=== PATIENT | female | born 1975 | race Caucasian/White ===

== ENCOUNTER → 2021-01-28 02:31 | Outpatient (CLI) | payer OTHER, SELFPAY ==
[2021-01-28 16:16] LABS: SARS-CoV-2 RNA PCR Negative
== END ==
PROVIDERS: Visit Provider Obstetrics & Gynecology
DX: Z01.812 Encounter for preprocedural laboratory examination (principal); Z20.822 Contact with and (suspected) exposure to COVID-19
CPT/HCPCS: C9803; U0003; U0005

== ENCOUNTER 2021-01-30 10:39 | Outpatient (CLI) | payer OTHER, SELFPAY ==
--- NOTE | 2021-01-30 10:45 | ECG_ITS ---
Measurements Intervals [place] Rate: 71 P: 32 [place]: 154 QRS: 12 QRSD: 102 T: 29 QT: 395 QTc: 431 Interpretive Statements SINUS RHYTHM INCOMPLETE RIGHT BUNDLE BRANCH BLOCK LOW QRS VOLTAGE IN PRECORDIAL LEADS BORDERLINE R WAVE PROGRESSION, ANTERIOR LEADS BORDERLINE ECG Electronically Signed On 01-30-2021 11:32:25 CDT by Az Conner D.O.
[2021-01-30 11:42] LABS: Basophils Absolute Auto 0.1 K/mm3 (0.0-0.1); Basophils Percent Auto 0.5 % (0.2-1.2); Eosinophils Absolute Auto 0.3 K/mm3 (0-0.3); Eosinophils Percent Auto 2.7 % (0-4.4); Hematocrit 44.5 % (37.0-47.0); Hemoglobin 14.5 g/dL (12.0-15.0); Immature Granulocyte Absolute 0.03 K/mm3 (0.00-0.031); Immature Granulocyte Percent A 0.3 % (0-0.5); Lymphocytes Absolute Auto 2.57 K/mm3 (0.9-3.2); Lymphocytes Percent Auto 23.7 % (18.3-44.2); Mean Corpuscular HGB Conc 32.6 g/dl (32-36); Mean Corpuscular Hemoglobin 28.4 pg (26-34); Mean Corpuscular Volume 87.1 fl (80-100); Mean Platelet Volume 10.2 fl (7.4-10.4); Monocytes Absolute Auto 0.7 K/mm3 (0.1-0.6); Neutrophils Absolute Auto 7.3 K/mm3 (1.3-6.7); Neutrophils Percent Auto 66.8 % (45.5-73.1); Platelet Count Result 299 k/mm3 (150-375); Red Blood Count 5.11 M/mm3 (4.2-5.4); Red Cell Distribution Width 13.8 % (11.5-14.5); White Blood Count 10.8 K/mm3 (4.5-10.0)
[2021-01-30 11:48] LABS: Anion Gap 11 mmol/L (8-16); Blood Urea Nitrogen 20 mg/dL (7-17); Calcium 9.9 mg/dL (8.4-10.2); Carbon Dioxide 29 mmol/L (22-30); Chloride 102 mmol/L (98-107); Estimated Glomerular Filt Rate > 60; Glucose 109 mg/dL (65-105); Potassium 3.5 mmol/L (3.4-5.0); Sodium 142 mmol/L (137-145)
== END 2021-01-30 10:40 | disposition home or self-care (01) ==
LOC: ANHSURGERY 10:48
PROVIDERS: Visit Provider Obstetrics & Gynecology
DX: N85.2 Hypertrophy of uterus (principal); I10 Essential (primary) hypertension; Z01.818 Encounter for other preprocedural examination; I45.10 Unspecified right bundle-branch block
CPT/HCPCS: 36415; 80048; 85025; 86850; 86900; 86901; 93005

== ENCOUNTER 2021-01-31 00:27 | Day surgery (SDC) | payer OTHER, MEDICARE, SELFPAY ==
[2021-01-28 11:05] VITALS: BMI 54.6
--- NOTE | 2021-01-29 07:14 | PM.IMHP ---
H&P: HPI History of Present Illness Date/Time: 01/29/21 07:14 [age] admitted for robotic total vaginal hysterectomy and bilateral salpingectomies. She complains of pain discomfort dyspareunia. She has an enlarged uterus and has failed ablation. She opted for hysterectomy as she does have a prolapse risks and benefits were reviewed including but not exclusive of , aspiration pneumonia, bleeding, transfusion, perforation injury to bowel, bladder, ureters, or other internal organs with need for open laparotomy. She received the ACOG handout on hysterectomy as well as advancing handout. She had all questions answered. She asked to proceed Chief Complaint: pelvic pain/dyspareunia / enlarged uterus / bleeding Review of Systems Review of Systems: All systems reviewed & are unremarkable except as noted in HPI and below [facility] Social History Social History Years smoked: 30 Smoking status: Former smoker Tobacco type: cigarettes Substance use: current Substance use type: marijuana Other substance usage details: DAILY MARIJUANA USE Last use: 2014 Spiritual care concerns: No Meds Home Medications and Allergies Home Medications Medication Instructions Recorded Confirmed Type albuterol sulfate 2 puff INHALATION PRN PRN 01/28/21 01/28/21 History cholecalciferol (vitamin D3) 25 mcg PO DAILY 01/28/21 01/28/21 History [Vitamin D3] cyclobenzaprine 10 mg PO HS 01/28/21 01/28/21 History erenumab-aooe [Aimovig 140 mg SUBCUT MONTHLY 01/28/21 01/28/21 History Autoinjector] hydrochlorothiazide 12.5 mg PO DAILY 01/28/21 01/28/21 History meloxicam 15 mg PO DAILY 01/28/21 01/28/21 History metoprolol succinate 25 mg PO HS 01/28/21 01/28/21 History phentermine 15 mg PO DAILY 01/28/21 01/28/21 History Allergies Allergy/AdvReac Type Severity Reaction Status Date / Time levofloxacin Allergy Severe ORGAN Verified 01/28/21 11:23 FAILURE aspartame Allergy Migraine Verified 01/28/21 11:23 latex Allergy Itching Verified 01/28/21 11:23 CURRANT CROWELL Allergy Itching Uncoded 01/28/21 11:23 Exam Const: General: no acute distress Eyes: General: appearance normal, both eyes and all related structures Neck: Neck: supple and no JVD Thyroid: thyroid normal Resp: Effort & Inspection: normal respiratory effort Auscultation: clear to auscultation bilaterally Cardio: Rate: regular rate Rhythm: regular rhythm GI: Inspection: non-distended GI Palp: Yes Soft to palpation, No Tenderness to palpation present (GI) and No Guarding due to palpation present (GI) Auscultation: normal bowel sounds : External Female Exam: normal external appearance Speculum Exam - Vagina: normal appearance of the vagina Speculum Exam - Cervix: Cervical os closed Bimanual exam- vagina & uterus: enlarged and Uterine tenderness ( second-degree prolapse is present) Bimanual Exam- Adnexa, other: normal adnexae ( difficult secondary to pannus) and cul-de-sac tenderness Skin: General skin exam: no rashes or lesions noted Extrem: General: normal to inspection and no edema Psych: Mental Status: mental status grossly normal Affect: normal affect Assessment and Plan Additional Plan impression: Enlarged uterus, pelvic pain, dyspareunia, failed ablation Plan: Robotic total vaginal hysterectomy and bilateral salpingectomies
[2021-01-31] VITALS (11 sets, daily range): BP systolic 128–158; BP diastolic 61–89; PULSE 51–79; RESP 12–20; TEMP 36.2–36.6; O2SAT 90–100
--- NOTE | 2021-01-31 05:42 | WPDHPUPDATE1 ---
History and Physical Update Update Date/Time: 01/31/21 05:42 History and Physical has been reviewed, including an updated exam of the patient. There are NO changes in the patient's condition. Risks, benefits, and alternatives have been discussed and questions answered. Patient agrees to proceed with procedure.
[2021-01-31] MEDS: ACETAMINOPHEN 500 MG TABLET 1000 MG PO (06:35)
[2021-01-31] MEDS: LACTATED RINGERS 1,000 ML 30 ML IV CONT ×2 (06:44→09:24)
[2021-01-31] MEDS: KETOROLAC 15 MG/ML VIAL (*BKC) IV PUSH (06:46)
--- NOTE | 2021-01-31 06:50 | WPDANESEPPF ---
Anes - Initial Pre Proc Eval Procedure: Operation Date: 01/31/21 07:30 Proposed Procedures p Robotic Total Vaginal Hysterectomy, with Bilateral Salpingectomy - Kamaljit Joseph MD Date/Time: 01/31/21 06:50 Surgeon: Kamaljit Joseph MD Pre Op Diagnosis: enlarged uterus,pelvic pain,dysmenorrhea,failed ab Patient Data Age: 45 Gender: F Height: 1.63 m Weight: 146.3 kg Last Vital Signs Temp 36.2 C L 01/31/21 06:13 Pulse 69 01/31/21 06:13 Resp 16 01/31/21 06:13 BP 143/79 H 01/31/21 06:13 Pulse Ox 100 01/31/21 06:13 Allergies Allergy/AdvReac Type Severity Reaction Status Date / Time levofloxacin Allergy Severe ORGAN Verified 01/31/21 06:24 FAILURE aspartame Allergy Intermediate Migraine Verified 01/31/21 06:24 latex Allergy Intermediate Itching Verified 01/31/21 06:24 CURRANT CROWELL Allergy Intermediate Itching Uncoded 01/31/21 06:24 Home Medications Medication Instructions Recorded Confirmed Type albuterol sulfate 2 puff INHALATION PRN PRN 01/28/21 01/31/21 History cholecalciferol (vitamin D3) 25 mcg PO DAILY 01/28/21 01/31/21 History [Vitamin D3] cyclobenzaprine 10 mg PO HS 01/28/21 01/31/21 History erenumab-aooe [Aimovig 140 mg SUBCUT MONTHLY 01/28/21 01/31/21 History Autoinjector] hydrochlorothiazide 12.5 mg PO DAILY 01/28/21 01/31/21 History meloxicam 15 mg PO DAILY 01/28/21 01/31/21 History metoprolol succinate 25 mg PO HS 01/28/21 01/31/21 History phentermine 15 mg PO DAILY 01/28/21 01/31/21 History hydrocodone-acetaminophen 1 tablet PO Q4H PRN #30 tablet 01/31/21 Rx Patient hx anesthesia problems: none Family hx anesthesia problems: none PMFSH Past Medical History Medical History (Updated 01/31/21 @ 06:51 by Kamaljit Johnston MD) Asthma Fibromyalgia Morbid obesity Surgical History Surgical History (Updated 01/31/21 @ 06:51 by Kamaljit Johnston MD) History of cholecystectomy History of endometrial ablation Social History Social History Years smoked: 30 Smoking status: Former smoker Tobacco type: cigarettes Substance use: current Substance use type: marijuana Other substance usage details: DAILY MARIJUANA USE Last use: 2014 Living arrangements: with family Spiritual care concerns: No Anes - Eval Final PreProcedure Day of Procedure 01/31/21 06:50 Patient weight: super morbidly obese Heart: regular rate and rhythm Lungs: clear to auscultation Airway: Mallampati scale class II Neurological: alert and oriented Last oral intake: >/= 8 hours ASA classification: IV Emergent: no Anesthetic plan: proceed Anesthesia type and monitoring: general ETT and standard monitoring Informed Consent: The patient's anesthetic plan and its attendant risks and benefits were discussed with the patient/family/POA. Questions were solicited and answers provided to the satisfaction of the patient/family/POA.
[2021-01-31] MEDS: ceFAZolin 3 GM/D5W 100 ML 100 ML IVPB (07:32)
--- NOTE | 2021-01-31 09:08 | W.PM.PROC2 ---
Procedure Note - Detailed Date of Procedure 01/31/21 Pre-op Diagnosis enlarged uterus,pelvic pain,dysmenorrhea,failed ab Post-op Diagnosis other (Extensive adhesions) Procedure Performed robotic total vaginal hysterectomy / bilateral salpingectomies / extensive lysis of adhesions Surgeon Kamaljit Joseph MD Anesthesia general Indications this is a 45-year-old female with a failed ablation who had severe pelvic pain and enlarged uterus. Findings A markedly enlarged uterus. Tubes status post tubal ligation. Multiple adhesions from omentum to uterus ovaries and tubes. Description of Procedure Patient was prepped and draped in the normal sterile fashion placed in the dorsal lithotomy position. Under excellent general endotracheal anesthesia weighted speculum placed in posterior fornix vagina. Anterior lip of the cervix grasped with a single-tooth tenaculum the uterus sounded to 10cm. Serial dilatation with fragmented dilators performed followed by passage of the 8. SKYE and the 3.5 cold cup. A 16 [place] catheter was placed in the bladder and drained clear urine. The weighted speculum and the single-tooth removed. Gloves were changed Supraumbilical incision made in the Veress needle passed in the abdomen. The abdomen was filled with CO2 gas [id number]. The 8mm trocar advanced in the abdomen. The downside visualized and no injury seen. Gas reattached. The patient placed in Trendelenburg and right and left lateral quadrant incisions were made. A right upper quadrant incision made in the 10mm trocar advanced under direct visualization assuring no injury. There was some difficulty due to the patient's morbid obesity but this was undertaken. The robot was docked. Attention was turned to the console. The left round ligament was grasped, burned, cut. Anteriorly the bladder was markedly adherent to the anterior portion of the uterus and fundus. Layer by layer this was brought down and reflected distally from the uterus and cervix. This was taken to the opposite round ligament which was clamped, burned, cut. The ovary and tube complexes were noted be markedly adherent. Before attempting to approach that posteriorly the colon and omentum was markedly adherent to the posterior surface of the uterus from the fundus on down. Sharp dissection was undertaken going layer by layer until this was cleared. Eventually the tubes could be visualized the left fallopian tube was sharply dissected away from the ovary and removed through the right lower quadrant. This was repeated with the right fallopian tube. The left utero-ovarian ligament was then skeletonized. This was clamped, burned, cut and brought to the level of the previously cut round ligament. In like fashion conserving the right ovary utero-ovarian ligament was clamped, burned, cut and brought to the level of previously cut round ligament. The cardinal and broad ligaments on the left were then Star García dissected by clamping burning cutting and hugging the cervical edge until the uterine vessels could be seen. The uterine vessels were noted to be markedly enlarged tortuous. These were individually clamped, burned, cut. In like fashion the cardinal broad ligaments on the right were serially skeletonized sliding along the edge of the uterus and cervix clamping burning and cutting. Once uterine vessels could be visualized on the right these were also large and tortuous. They were clamped individually cut and burned. Excellent blanching of the uterus was seen and the colpotomy incision was made. The uterus cervix and tubes removed through the vagina. Blood loss estimated about 25cc at that point. Irrigation undertaken to clear. The vaginal cuff was then closed with continuous running 0V lock from lateral edge to lateral edge back to the midline. The pedicles all appeared dry. And [place] term was placed over the raw surface area. Blood loss estimated 25cc. The robot was then undocked. The
--- NOTE | 2021-01-31 09:11 | SUR.OPER ---
EBL=25ML
[2021-01-31] MEDS: fentaNYL CITRATE INJ (*CRX) 100 MCG/2 ML VIAL 25 MCG IV PUSH ×4 (09:37→09:57)
[2021-01-31] MEDS: ONDANSETRON INJ 4 MG/2 ML VIAL IV PUSH (09:39)
[2021-01-31] MEDS: HYDROmorphone HCL INJ (*CRX) 1 MG/ML SYR 0.25 MG IV PUSH ×4 (09:59→10:15)
[2021-01-31] MEDS: DEXTROSE 5%/LACTATED RINGERS 1,000 ML 125 ML IV CONT ×2 (11:20→18:51)
[2021-01-31] MEDS: MORPHINE SULFATE (*CRX) 4 MG/ML INJ IV PUSH (11:22)
--- NOTE | 2021-01-31 11:40 | PC.NURSE ---
This patient, Shirlene Ferrera, was received from PACU on 01/31/21 at 1100. Patient/family oriented to unit policies and routines
[2021-01-31] MEDS: KETOROLAC 30 MG/ML VIAL (*BKC) IV PUSH ×2 (13:38→19:40)
[2021-01-31] MEDS: HYDROcodone/acetaminophen (*CRX) 10-325 MG TABLET 1 TAB PO (19:39)
[2021-02-01] MEDS: IBUPROFEN 600 MG TABLET PO ×2 (01:00→08:37)
[2021-02-01] MEDS: HYDROcodone/acetaminophen (*CRX) 10-325 MG TABLET 1 TAB PO (01:00)
[2021-02-01 03:24] VITALS: BP 121/54; PULSE 69; RESP 18; TEMP 36.6; O2SAT 100
[2021-02-01 03:36] VITALS: RESP 18; O2SAT 100
[2021-02-01 05:05] LABS: Basophils Percent Auto 0.2 % (0.2-1.2); Eosinophils Absolute Auto 0.1 K/mm3 (0-0.3); Eosinophils Percent Auto 0.9 % (0-4.4); Hematocrit 35.7 % (37.0-47.0); Hemoglobin 11.9 g/dL (12.0-15.0); Immature Granulocyte Absolute 0.07 K/mm3 (0.00-0.031); Immature Granulocyte Percent A 0.5 % (0-0.5); Lymphocytes Percent Auto 12.2 % (18.3-44.2); Mean Corpuscular HGB Conc 33.3 g/dl (32-36); Mean Corpuscular Hemoglobin 28.8 pg (26-34); Mean Corpuscular Volume 86.4 fl (80-100); Mean Platelet Volume 10.7 fl (7.4-10.4); Monocytes Absolute Auto 0.7 K/mm3 (0.1-0.6); Monocytes Percent Auto 4.4 % (2.6-8.5); Neutrophils Absolute Auto 12.7 K/mm3 (1.3-6.7); Neutrophils Percent Auto 81.8 % (45.5-73.1); Platelet Count Result 277 k/mm3 (150-375); Red Blood Count 4.13 M/mm3 (4.2-5.4); Red Cell Distribution Width 13.6 % (11.5-14.5); White Blood Count 15.5 K/mm3 (4.5-10.0)
--- NOTE | 2021-02-01 07:45 | PM.DS ---
DS: Admitting Diagnosis Admitting Diagnosis Admitting Diagnosis: Enlarged uterus /pelvic pain / pelvic adhesions /bleeding refractory to medical therapy DS: Summary Hospital Course Hospital Course: the patient was admitted for robotic hysterectomy and bilateral salpingectomy secondary to bleeding and pain. The procedure was unremarkable with blood loss of 25cc. Please see the operative report for full details. Her postop course was unremarkable. Her incisions were clean dry and intact. She remained afebrile. She was up, voiding without difficulty, eating, and ambulating on a in general without complaints. Time Spent with Patient Time attestation: Total time spent providing and/or coordinating discharge services: Exam Const: General: no acute distress Eyes: General: appearance normal, both eyes and all related structures Neck: Neck: supple and no JVD Thyroid: thyroid normal Resp: Effort & Inspection: normal respiratory effort Auscultation: clear to auscultation bilaterally Cardio: Rate: regular rate Rhythm: regular rhythm GI: Inspection: normal to inspection and incision (cdi) : General: Yes bladder normal to palpation External Female Exam: normal external appearance Speculum Exam - Vagina: normal vaginal discharge and No vaginal bleeding Speculum Exam - Cervix: nontender Bimanual exam- vagina & uterus: bladder normal to palpation and No Cervical tenderness present OB/external & speculum: No vaginal bleeding Skin: General skin exam: no rashes or lesions noted Extrem: General: normal to inspection and no edema Psych: Mental Status: mental status grossly normal Affect: normal affect DS: Data Data Completed and Pending Pending studies at discharge: Pending at discharge 01/31/21 08:40 Surgical [PTH] Routine Labs on day of discharge: Labs from last 24 hours 02/01/21 03:03 WBC 15.5 H RBC 4.13 L Hgb 11.9 L Hct 35.7 L MCV 86.4 MCH 28.8 MCHC 33.3 RDW 13.6 Plt Count 277 MPV 10.7 H Immature Gran % (Auto) 0.5 Neut % (Auto) 81.8 H Lymph % (Auto) 12.2 L [place] % (Auto) 4.4 Eos % (Auto) 0.9 Baso % (Auto) 0.2 Lymph # (Auto) 1.90 [place] # (Auto) 0.7 H Eos # (Auto) 0.1 Baso # (Auto) 0.0 Abs Immat Gran (auto) 0.07 H Absolute Neuts (auto) 12.7 H Absolute Nucleated RBC 0.0 Nucleated RBC % 0.0 Discharge Plan Discharge Patient Disposition: Home, Self-Care Stand Alone Forms: General Discharge Instructions Follow-up/Referrals: Kamaljit Joseph MD [Physician] - Discharge Medications: New hydrocodone-acetaminophen 5-325 mg tablet 1 tablet PO Q4H PRN (Reason: pain) Qty: 30 RF: 0 No Action cyclobenzaprine 10 mg tablet 10 mg PO HS RF: 0 meloxicam 15 mg tablet 15 mg PO DAILY RF: 0 phentermine 15 mg capsule 15 mg PO DAILY RF: 0 metoprolol succinate 25 mg tablet extended release 24 hr 25 mg PO HS RF: 0 cholecalciferol (vitamin D3) [Vitamin D3] 25 mcg (1,000 unit) Tablet 25 mcg PO DAILY RF: 0 hydrochlorothiazide 12.5 mg tablet 12.5 mg PO DAILY RF: 0 albuterol sulfate 90 mcg/actuation HFA aerosol inhaler 2 puff INHALATION PRN PRN (Reason: Shortness Of Breath) RF: 0 Aimovig Autoinjector 140 mg/mL auto-injector 140 mg SUBCUT MONTHLY RF: 0
--- NOTE | 2021-02-01 07:48 | PM.GYNPNOP ---
HISTORIC PRESERVATIONIST - A/P Postoperative Procedures: Procedures Operation Date: 01/31/21 07:30 Actual Procedure Side Surgeon p Robotic Total Vaginal Hysterectomy, with Bilateral Salpingectomy Kamaljit Joseph MD Postoperative day: 1 Postoperative status: doing well Postoperative plan: routine post-op care, ambulate, advance diet and discharge Time Spent With Patient Time: Total time spent is greater than 50% in coordination of care (as documented) at patient's floor/unit and/or counseling patient: Time with patient: less than 15 minutes HISTORIC PRESERVATIONIST- PN:Subj Post-Op Subjective Date/time seen: 02/01/21 07:48 Subjective: patient has no complaints Review of Systems Review of Systems: All systems reviewed & are unremarkable except as noted in HPI and below Exam Const: General: no acute distress Eyes: General: appearance normal, both eyes and all related structures Neck: Neck: supple and no JVD Thyroid: thyroid normal Resp: Effort & Inspection: normal respiratory effort Auscultation: clear to auscultation bilaterally Cardio: Rate: regular rate Rhythm: regular rhythm GI: Inspection: non-distended GI Palp: Yes Soft to palpation, No Tenderness to palpation present (GI) and No Guarding due to palpation present (GI) Auscultation: normal bowel sounds : General: Yes bladder normal to palpation External Female Exam: normal external appearance Speculum Exam - Vagina: normal vaginal discharge and No vaginal bleeding Speculum Exam - Cervix: nontender Bimanual exam- vagina & uterus: bladder normal to palpation and No Cervical tenderness present OB/external & speculum: No vaginal bleeding Skin: General skin exam: no rashes or lesions noted Extrem: General: normal to inspection and no edema Psych: Mental Status: mental status grossly normal Affect: normal affect HISTORIC PRESERVATIONIST - PN: Obj Data Vital Signs Vital Signs: Vital Signs - 24 hr 01/31/21 09:24 01/31/21 09:40 01/31/21 09:55 Temperature 97.5 F L Pulse Rate 55 L 56 L 52 L Respiratory Rate 16 17 12 Blood Pressure 153/83 H 158/82 H 155/89 H Pulse Oximetry 100 91 90 01/31/21 10:10 01/31/21 10:25 01/31/21 10:40 Temperature Pulse Rate 55 L 51 L 53 L Respiratory Rate 14 14 14 Blood Pressure 145/83 H 157/84 H 149/84 H Pulse Oximetry 93 97 97 01/31/21 11:15 01/31/21 16:15 01/31/21 19:00 Temperature 97.2 F L 97.9 F 97.6 F Pulse Rate 62 70 68 Respiratory Rate 16 20 18 Blood Pressure 154/86 H 137/64 131/80 Pulse Oximetry 99 99 99 01/31/21 22:36 02/01/21 03:24 02/01/21 03:36 Temperature 98 F 97.9 F Pulse Rate 79 69 Respiratory Rate 18 18 18 Blood Pressure 128/61 121/54 L Pulse Oximetry 100 100 Intake/Output Intake/Output: Intake & Output 01/29/21 01/30/21 01/31/21 02/01/21 23:59 23:59 23:59 23:59 Intake Total 1600 2500 Output Total 340 1600 Balance 1260 900 Meds/Results Medications: Active Medications Generic Name Dose Route Start Last Admin Trade Name Freq PRN Reason Stop Dose Admin Hydrocodone Bitart/Acetaminophen 1 tab 01/31/21 10:47 Hydrocodone/Acetaminophen (*Crx) 5-325 Mg Tablet PO Q3H PRN Pain Rated 5 or Less Hydrocodone Bitart/Acetaminophen 1 tab 01/31/21 10:47 02/01/21 01:00 Hydrocodone/Acetaminophen (*Crx) 10-325 Mg Tablet PO 1 tab Q3H PRN Administration Pain Rated 6 or Greater Docusate Sodium 100 mg 01/31/21 17:00 01/31/21 19:36 Docusate Sodium 100 Mg Capsule PO Not Given BID [facility] Enoxaparin Sodium 40 mg 02/01/21 09:00 Enoxaparin 40 Mg/0.4 Ml Syringe SUB-Q DAILY [facility] Ibuprofen 600 mg 01/31/21 10:47 02/01/21 01:00 Ibuprofen 600 Mg Tablet PO 600 mg Q6H PRN Administration Cramping Ketorolac Tromethamine 30 mg 01/31/21 10:47 01/31/21 19:40 Ketorolac 30 Mg/Ml Vial (*Bkc) IV PUSH 02/05/21 10:48 30 mg Q6H PRN Administration Pain Rated 4-6 Morphine Sulfate 4 mg 01/31/21 10:47 01/31/21 11:22 Morphine Sulfate (*Crx) 4 Mg/Ml Inj IV PUSH 4
[2021-02-01 08:30] VITALS: BP 130/71; PULSE 80; RESP 18; TEMP 36.7; O2SAT 100
[2021-02-01] MEDS: DOCUSATE SODIUM 100 MG CAPSULE PO (08:37)
[2021-02-01] MEDS: HYDROcodone/acetaminophen (*CRX) 5-325 MG TABLET 1 TAB PO (08:38)
[2021-02-01] MEDS: ENOXAPARIN 40 MG/0.4 ML SYRINGE SUB-Q (08:38)
== END 2021-02-01 09:45 | disposition home or self-care (01) ==
LOC: ANHSURGERY 06:01 → ANHOB2 10:59
PROVIDERS: Visit Provider Obstetrics & Gynecology
PROC: (CPT 58552; principal; 2021-01-31 07:30)
DX: R10.2 Pelvic and perineal pain (principal); N94.6 Dysmenorrhea, unspecified; N73.6 Female pelvic peritoneal adhesions (postinfective); N80.0 Endometriosis of uterus; N94.10 Unspecified dyspareunia; Z87.891 Personal history of nicotine dependence; F12.90 Cannabis use, unspecified, uncomplicated; Z79.51 Long term (current) use of inhaled steroids; J45.909 Unspecified asthma, uncomplicated; M79.7 Fibromyalgia; E66.01 Morbid (severe) obesity due to excess calories; Z68.43 Body mass index [BMI] 50.0-59.9, adult
CPT/HCPCS: 58552; S2900; 36415; 80048; 85025; 86850; 86900; 86901; 88307; 93005; 99199; A9270; C9803; J0690; J1100; J1170; J1200; J1650; J1885; J2250; J2270; J2405; J2704; J2710; J3010; J7030; J7120; J7121; U0003; U0005